=== PATIENT | female | born 1945 | race Caucasian/White ===

== ENCOUNTER 2017-06-30 14:37 | Inpatient (IN) ==
[2017-06-30] MEDS ORDERED: ONDANSETRON 4 MG/2 ML VIAL IV PRN (14:46)
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
[2017-06-30] MEDS ORDERED: ENOXAPARIN 80 MG/0.8 ML SYRINGE SUBCUT ONE (16:32)
[2017-06-30] MEDS ORDERED: NITROGLYCERIN SL 0.4 MG TABLET SL PRN (16:54)
[2017-06-30 17:50] LABS: Basophils % 0.2 % (0.0-0.8); Eosinophils # 0.1 10*3/uL (0.0-0.87); Eosinophils % 1.7 % (0.00-10.9); Hematocrit 37.4 VOL% (35.7-47.0); Hemoglobin 12.4 GM/DL (12.0-16.0); Immature Granulocytes % 0.2 %; Immature Granulocytes Absolute 0.01 #; Lymphocytes % 48.8 % (21.3-54.2); Mean Corpuscular HGB Conc 33.2 GM/DL (32-36); Mean Corpuscular Hemoglobin 32 PG (27-34); Mean Corpuscular Volume 95.7 FL (87-102); Mean Platelet Volume 9.3 FL (9.6-12.0); Monocytes # 0.7 10*3/uL (0.11-0.8); Monocytes % 11.8 % (1.7-12.7); Neutrophils # 2.3 10*3/uL (1.4-7.4); Neutrophils % 37.3 % (38.7-73.9); Platelet Count 353 T/CUMM (130-400); Red Blood Count 3.91 MC/CUMM (3.8-5.5); Red Cell Distribution Width 13.2 % (9.3-17.3)
--- NOTE | 2017-06-30 17:57 | Event Note ---
Chart reviewed and discussed with nurse. Patient is off the floor in radiology. Asked to see patient regarding dysphagia to solids. She also has been having some chest pain and presyncope/syncope episodes. Cardiology is seeing her with plans for possible catheterization tomorrow apparently. I will check back tomorrow morning for consultation.
[2017-06-30] MEDS: SODIUM CHLORIDE 0.9% 1,000 ML IV SCH (18:11)
--- NOTE | 2017-06-30 18:18 | EKG Report ---
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
[2017-06-30] MEDS: PANTOPRAZOLE 40 MG VIAL IV SCH (18:20)
[2017-06-30] MEDS: ISOSORBIDE MONONITRATE 30 MG TABLET PO SCH (18:20)
--- NOTE | 2017-06-30 18:22 | Ultrasound Report ---
Exam:US carotid duplex BI Date:06/30/2017 4:55 PM Indication: Syncope, falling, dizziness Color Doppler, wave form analysis, and grayscale analysis of the cervical carotid arteries was performed. There is moderate partially calcified plaque in either carotid bulb. Waveform analysis shows proper directional flow of the cervical carotid arteries. There is antegrade flow in either vertebral artery. There are no areas of increased peak systolic velocity Impression: There is 16-49% diameter reduction narrowing of either internal carotid artery using indirect NASCET criteria Right Side Flow velocities centimeters per second Common carotid artery:86.0 Proximal ICA:106.8 Distal ICA:80.7 External carotid artery:106.8 Vertebral artery:104.2 ICA/CCA ratio:1.2 Measurements in millimeters Distal ICA: 4.8 mm Left SIde Flow velocities centimeters per second Common carotid artery 87.2 Proximal ICA:92.4 Distal ICA:94.6 External carotid artery:92.0 Vertebral artery:62.5 ICA/CCA ratio:1.1 Measurements in millimeters Distal ICA: 4.8 mm Today studies were performed utilizing indirect NASCET criteria PROCEDURE INTERPRETED AT [facility] DEPARTMENT OF RADIOLOGY Final Report Signed by: Dr. Bailee Figueroa
[2017-06-30] MEDS: ASPIRIN EC 81 MG TABLET PO SCH (18:23)
[2017-06-30 18:34] LABS: Apearance,Urine CLEAR (Clear); Bilirubin,Urine Negative (Negative); Blood, Urine Small mg/dL (Negative); Glucose,Urine (UA) Negative (Negative); Ketones,Urine Negative (Negative); Nitrite,Urine Negative (Negative); Protein,Urine Negative; RBC,Urine <1 /HPF (0-4); Squamous Epithelial Cell,Urine Occasional /HPF (0-10); Urine Color Straw (Yellow); Urine Specific Gravity 1.003 (1.001-1.035); Urine Urobilinogen < 2.0 EU/DL (0.2-1.0)
[2017-06-30 18:36] LABS: Albumin 3.4 G/DL (3.4-5.0); Bilirubin,Total 0.5 MG/DL (0.2-1.0); Magnesium 2.3 MG/DL (1.8-2.4); Osmolality,Calculated 282.3 MOS/KG (273-304); Potassium 4.1 MMOL/L (3.5-5.1); Total Protein 6.7 G/DL (6.4-8.3); Troponin I Only < 0.015 NG/ML (0.00-0.045)
--- NOTE | 2017-06-30 18:57 | XRay Report ---
History: Shortness of breath Date: 06/30/2017 Study: Chest x-ray PA and lateral Comparison exam: No previous The cardiac silhouette is not enlarged. There is no mediastinal mass. The lungs and pleural spaces are generally clear. There are some probable scattered emphysematous changes in the upper lung zones. There is mild thoracic spondylosis and mild osteopenia. Impression: No acute cardiopulmonary process. Chronic lung changes PROCEDURE INTERPRETED AT [facility] DEPARTMENT OF RADIOLOGY Final Report Signed by: Dr. Bailee Figueroa
[2017-06-30 19:14] LABS: Eosinophils 1 % (0-10); Lymphocytes 55 % (20-55); Segmented Neutrophils 43 % (50-85); Total Cells Counted 100
[2017-06-30 19:15] LABS: Burr Cells Few; Platelet Estimate Normal; Poikilocytosis 1+; Tear Drop Cells Few
[2017-06-30 19:44] LABS: Troponin I Only < 0.015 NG/ML (0.00-0.045)
[2017-06-30 20:25] LABS: Free T4 (Free Thyroxine) 0.9 NG/DL (0.76-1.46); Thyroid Stimulating Hormone 1.41 uIU/ml (0.358-3.74)
[2017-06-30] MEDS ORDERED: CARVEDILOL 3.125 MG TABLET PO SCH ×2 (21:00)
[2017-06-30] MEDS: CARVEDILOL 3.125 MG TABLET PO SCH (21:22)
[2017-06-30] MEDS: ATORVASTATIN 40 MG TABLET PO SCH (21:22)
[2017-06-30] MEDS: DOCUSATE SODIUM 100 MG CAPSULE PO SCH (21:22)
[2017-06-30 22:52] LABS: Troponin I Only < 0.015 NG/ML (0.00-0.045)
[2017-07-01] MEDS: ACETAMINOPHEN 325 MG TABLET PO PRN ×2 (04:00→21:12)
[2017-07-01 04:20] LABS: Basophils % 0.2 % (0.0-0.8); Eosinophils # 0.1 10*3/uL (0.0-0.87); Eosinophils % 2.4 % (0.00-10.9); Immature Granulocytes % 0.2 %; Immature Granulocytes Absolute 0.01 #; Lymphocytes # 2.6 10*3/uL (1.4-4.0); Lymphocytes % 48.1 % (21.3-54.2); Mean Corpuscular HGB Conc 32.4 GM/DL (32-36); Mean Corpuscular Hemoglobin 31 PG (27-34); Mean Corpuscular Volume 94.4 FL (87-102); Mean Platelet Volume 9.1 FL (9.6-12.0); Monocytes # 0.6 10*3/uL (0.11-0.8); Neutrophils % 38.1 % (38.7-73.9); Platelet Count 319 T/CUMM (130-400); Red Cell Distribution Width 13.2 % (9.3-17.3); White Blood Count 5.4 T/CUMM (4-12)
[2017-07-01 04:50] LABS: Calcium 8.5 MG/DL (8.5-10.1); Osmolality,Calculated 284.8 MOS/KG (273-304); Potassium 3.9 MMOL/L (3.5-5.1)
[2017-07-01 04:57] LABS: Risk Ratio 2.65; VLDL CHOLESTEROL 27.4 MG/DL
[2017-07-01 05:14] LABS: Eosinophils 1 % (0-10); Giant Platelets Few; Hypochromasia 1+; Lymphocytes 51 % (20-55); Microcytosis Slight; Platelet Estimate Adequate; Segmented Neutrophils 43 % (50-85); Total Cells Counted 100
[2017-07-01] MEDS: SODIUM CHLORIDE 0.9% 1,000 ML IV SCH (05:29)
--- NOTE | 2017-07-01 08:05 | CT Report ---
Exam: CT head without intravenous contrast Clinical History: 72 years Female syncope, dizziness and fall Technique: Axial computed tomography images of the head/brain without intravenous contrast Comparison: No relevant comparisons Findings: Brain: Patchy white matter hypoattenuation predominantly within the proximal lobes suggesting microangiopathic small vessel disease. Choudhury-white matter distinction maintained. No mass effect. No intra or extra-axial hemorrhage. Ventricles: Unremarkable. No ventriculomegaly. Bones/joints: Calvarium is intact Soft tissues: Unremarkable Sinuses: No active paranasal sinus process Mastoid air cells: Unremarkable visualized. Impression: 1. No acute intracranial abnormality PROCEDURE INTERPRETED AT [facility] DEPARTMENT OF RADIOLOGY Final Report Signed by: Moises Choudhury
--- NOTE | 2017-07-01 08:39 | Family Practice Progress Note ---
Family Practice - PN: Subj Interval history: PCP: Dr. 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 History of gastric bypass, pt seen and examined on telemetry floor , is having stress test today, Mentions had one episode of palpitations, heart racing, last night with 2-3 minutes, went away by rest on IVF , NPO, buchanan in place, no fever , has nausea, no vomiting , still feeling weak at bilateral legs Exam (Progress Note) - Constitutional Vitals: Period Temp Pulse Resp BP Sys/Marks Pulse Ox Last 24 Hr 96.8 F-98.6 F 64-99 16-20 114-151/56-91 95-97 Exam: General Examination: GENERAL APPEARANCE: alert and oriented, pleasant, elderly female patient, unsteady gait. HEENT: normal, tympanic membrane bilateral normal. EYES: extraocular movement intact (EOMI), conjunctiva clear, normal . NECK/THYROID: neck supple, full range of motion, no cervical lymphadenopathy, no thyromegaly , no carotid bruit. HEART: , regular rate and rhythm. No murmurs or rubs LUNGS: clear to auscultation bilaterally, no wheezes, rales, rhonchi . ABDOMEN: soft, nontender, nondistended, no organomegaly , bowel sounds present . EXTREMITIES: no edema. NEUROLOGIC: alert and oriented, cranial nerves 2-12 grossly intact, unsteady gait, strength 5/5 BL UE, 4/5 BL LE, . Results - Labs CBC & BMP: 07/01/17 03:52 07/01/17 03:52 Lab Results: I have reviewed the past 24 hour labs - Diagnostic Findings Procedure: Chest x-ray: report reviewed by me, CT: report reviewed by me Assessment and Plan (1) Syncope Status: Acute Assessment and plan: , Frequent falls, rule out cardiac origin, scheduled for stress test today, follow cardiology recommendations 2. Head CT negative, has weakness of bilateral legs, will follow recommendations of neurology 3. GERD, dysphagia, has nausea and vomiting, on Zofran and Protonix,consulted GI 4. Continue IV fluids, will monitor I's and O's. Current Visit: Yes (2) Frequent falls Status: Chronic Current Visit: Yes (3) Chest pain Status: Acute Current Visit: Yes (4) Hypertension, essential Status: Chronic Current Visit: Yes (5) Hyperlipidemia, unspecified Status: Chronic Current Visit: Yes (6) Coronary artery disease Status: Chronic Current Visit: Yes (7) Dysphagia Status: Chronic Current Visit: Yes (8) GERD (gastroesophageal reflux disease) Status: Chronic Current Visit: Yes (9) Oliguria Status: Acute Current Visit: Yes Quality Measures - VTE Contraindication to Pharmacological VTE Prophylaxis: High Risk of Bleeding
--- NOTE | 2017-07-01 08:41 | EKG Report ---
Stationary ECG Study [facility] Test Date: 07/01/2017 8:04:55 AM Pat Name: SHILO VANEGAS Department: Room: 296 Gender: F Pony Trimmer: ALEXIS : 1945 Requested by: Adore Barbosa Order Number: [id number] Reading MD: ANJELICA GROSSMAN Intervals [place] Rate: 59 P: 59 [place]: 170 QRS: -14 QRSD: 94 T: 60 QT: 429 QTc: 429 Interpretive Statements SINUS RHYTHM LOW QRS VOLTAGE IN PRECORDIAL LEADS INTERPRETATION BASED ON A DEFAULT AGE OF 40 YEARS Electronically Signed On 07-01-17 17:08:36 CDT by ANJELICA GROSSMAN [email or web address]
[2017-07-01] MEDS ORDERED: REGADENOSON 0.4 MG/5 ML SYRINGE IV ONE (08:52)
--- NOTE | 2017-07-01 09:37 | Cardiology Progress Note ---
Assessment and Plan (1) Chest pain Status: Acute Assessment and plan: See Plan of Care Listed below. Current Visit: Yes (2) Oliguria Status: Acute Assessment and plan: See Plan of Care Listed below. Current Visit: Yes (3) Coronary artery disease Status: Chronic Assessment and plan: See Plan of Care Listed below. Current Visit: Yes (4) Dysphagia Status: Chronic Assessment and plan: See Plan of Care Listed below. Current Visit: Yes (5) GERD (gastroesophageal reflux disease) Status: Chronic Assessment and plan: See Plan of Care Listed below. Current Visit: Yes (6) Hyperlipidemia, unspecified Status: Chronic Assessment and plan: See Plan of Care Listed below. Current Visit: Yes (7) Hypertension, essential Status: Chronic Assessment and plan: See Plan of Care Listed below. Current Visit: Yes (8) Syncope Status: Acute Assessment and plan: See Plan of Care Listed below. Current Visit: Yes (9) Nausea & vomiting Status: Acute Assessment and plan: See Plan of Care Listed below. Current Visit: Yes (10) Frequent falls Status: Chronic Assessment and plan: See Plan of Care Listed below. Current Visit: Yes (11) Dizziness Status: Chronic Assessment and plan: See Plan of Care Listed below. Current Visit: Yes (12) Heart palpitations Status: Chronic Assessment and plan: See Plan of Care Listed below. Current Visit: Yes (13) History of esophageal stricture Status: Chronic Assessment and plan: See Plan of Care Listed below. Current Visit: Yes (14) Dyspnea on exertion Status: Chronic Assessment and plan: See Plan of Care Listed below. Current Visit: Yes Cardiology - PN: Subj Interval history: MICROBIOLOGY MANAGER: Dr. Strauss PCP: Dr. Barbosa SUMMARY Ms. Deleon is a 72 year old female with known history of coronary artery disease, not routinely followed by local cardiology. Cardiac risk factors include: Hypertension, dyslipidemia, documented CAD, obesity and premature family history of CAD (mother and father both from massive ME prematurely). Past medical history includes: GERD, esophageal stricture requiring dilatation and kidney stones. Patient apparently had intracoronary stents placed at [facility] by Dr. Funez. I have reviewed these records and she underwent angioplasty and stent placement to mid LAD in 2009. At that time, she also had a small first diagonal branch with borderline significant stenosis. Preserved LV systolic function in 2009. Patient was directly admitted from Dr. Barbosa's office 06/30/17 for intermittent complaints of mild, progressive chest discomfort, syncope and heart palpitations. Patient ruled out for myocardial infarction with negative cardiac biomarkers 3. EKG unremarkable. Patient will undergo a Lexiscan stress test today. 2016 Patient seen and examined in nuclear medicine prior to undergoing Lexiscan stress test. She reports that she had intermittent complaints of chest discomfort last night. She did not rest well. She is currently chest pain- free. Cardiac biomarkers have remained negative. She has ruled out for myocardial infarction. EKG unremarkable. Without changes during episodes of chest pain. Lexiscan stress test nondiagnostic. She did have chest tightness after initiation of Lexiscan. Lasted approximately 2 minutes. Associated with shortness of breath. Carotid ultrasound unremarkable. Orthostatic vital signs stable. Head CT stable. cardiac monitor technician reviewed. No evidence of underlying arrhythmia or ectopy. Thyroid function studies normal. D-dimer only mildly elevated at 0.7. Can consider CT PE protocol. Echocardiogram today. These results will be reviewed. Labs reviewed. Hemodynamically stable. Further recommendations to follow after echocardiogram and Lexiscan stress test results have been reviewed. IMPRESSION AND PLAN 1. CHEST PAIN - Ruled out for ME. Underwent Lexiscan stress test today. These results are pending. Echocardiogram also pending. Continue current plan of care with aspirin, beta sav, lipid-lowering agent and nitrates. Can consider addition of FER inhibitor or ARB if blood pressure will tolerate. Further recommendations to follow after echocardiogram and Lexiscan stress test results have been reviewed. 2. HISTORY OF KNOWN CORONARY ARTERY DISEASE - I have reviewed records from [facility]. She received successful angioplasty and stent to mid LAD in 2009. At that time, she also had a small first diagonal branch with borderline significant stenosis. Preserved LV systolic function. Continue current plan of care with aspirin, beta sav, lipid-lowering agent and nitrates. Can consider addition of FER inhibitor or ARB if blood pressure will tolerate. 3. DIZZINESS/SYNCOPE - Orthostatic vital signs and carotid ultrasound unremarkable. No evidence of arrhythmia on cardiac monitor. Consider 30 day event monitor at discharge. Neurology consulted. 4. HEART PALPITATIONS - Normal thyroid studies. Electrolytes within acceptable range. No evidence of overt arrhythmia or ectopy on cardiac monitor. We will continue to observe for this. Continue beta-sav. Consider 30 day event monitor at discharge per 5. DYSPNEA ON EXERTION - Echocardiogram pending. Underwent Lexiscan stress test today. These results are pending. Further recommendations to follow after these results when reviewed. 6. HYPERTENSION -continue beta-blockade. Will monitor blood pressure and adjust accordingly. Can consider initiation of FER inhibitor or ARB if blood pressure will tolerate. 7. HYPERLIPIDEMIA - LDL 69. Continue lipid-lowering agent. 8. GERD - Continue PPI. 9. HISTORY OF ESOPHAGEAL STRICTURE - Patient is complaining of dysphagia. GI has been consulted. 10. NAUSEA VOMITING - GI has been consulted. 11. OLIGURIA - Whitman catheter. Management per attending. Exam (Progress Note) - Constitutional Vitals: Period Temp Pulse Resp BP Sys/Marks Pulse Ox Last 24 Hr 96.8 F-98.6 F 64-99 16-20 114-151/56-91 95-97 Exam: General: Appears well with no apparent distress. Pleasant and cooperative. Appears comfortable. HEENT: PERRL, normocephalic, atraumatic. Mucous membranes moist. No jaundice noted. Conjunctiva moist and clear, sclerae anicteric Neck: No JVD/HJR, no thyromegaly or lymphadenopathy noted. No carotid bruit appreciated Cardiac: Regular rate and rhythm. No murmur rub or gallop. Lungs: Clear to auscultation without accessory muscle use to assist the respiratory pattern. Not requiring oxygen. Abdomen: Soft, bowel sounds normoactive. Nontender and nondistended. No abdominal bruit or thrill noted. No masses noted. Extremities: No clubbing, cyanosis noted. No edema noted. Upper extremity pulses 2+. Lower extremity pulses 2+. Capillary refill less than 3 seconds. Skin: No unusual lesions or rashes. No skin breakdown appreciated. Neuro: Awake, alert and oriented 3. Moves all extremities well without hemiparesis or paralysis. No essential tremor is appreciated. Result/EKG - Labs CBC & BMP: 07/01/17 03:52 07/01/17 03:52 Lab Results: I have reviewed the past 24 hour labs Labs: Laboratory Results - last 24 hr 06/30/17 06/30/17 06/30/17 16:42 16:42 16:42 WBC 6.0 RBC 3.91 Hgb 12.4 Hct 37.4 MCV 95.7 MCH 32 MCHC 33.2 RDW 13.2 Plt Count 353 MPV 9.3 L Neut % (Auto) 37.3 L Lymph % (Auto) 48.8 [place] % (Auto) 11.8 Eos % (Auto) 1.7 Baso % (Auto) 0.2 Neut # (Auto) 2.3 Lymph # (Auto) 3.0 [place] # (Auto) 0.7 Eos # (Auto) 0.1 Baso # (Auto) 0.0 Total Counted 100 Immature Gran % 0.2 Nucleated RBC % 0.0 Immature Gran # 0.01 Segmented Neutrophils 43 L Lymphocytes 55 Monocytes 1 L Eosinophils 1 Nucleated RBCs # 0.00 Platelet Estimate Normal Giant Platelets Immature Plt Fraction 0.0 Hypochromasia Poikilocytosis 1+ Microcytosis Tear Drop Cells Few Marcella Cells Few D-Dimer, Quantitative Sodium 141 Potassium 4.1 Chloride 105 Carbon Dioxide 28 Anion Gap 12.1 BUN 14 Creatinine 1.00 GFR Calculation 64 BUN/Creatinine Ratio 14.00 Glucose 109 H Calculated Osmolality 282.3 Calcium 9.0 Magnesium 2.3 Total Bilirubin 0.50 AST 23 ALT 25 Alkaline Phosphatase 134 H Total Creatine Kinase CK-MB (CK-2) Troponin I B-Natriuretic Peptide 16 Total Protein 6.7 Albumin 3.4 Globulin 3.3 Albumin/Globulin Ratio 1.0 L Triglycerides Cholesterol LDL Cholesterol VLDL Cholesterol HDL Cholesterol Heart Disease Risk Ratio Free T4 TSH 3rd Generation Urine Color Urine Appearance Urine pH Ur Specific [place] Urine Protein Urine Glucose (UA) Urine Ketones Urine Blood Urine Nitrate Urine Bilirubin Urine Urobilinogen Urine Leukocytes Urine RBC Ur Squamous Epith Cells Ur Culture Indicated? 06/30/17 06/30/17 06/30/17 16:42 16:44 18:45 WBC RBC Hgb Hct MCV MCH MCHC RDW Plt Count MPV Neut % (Auto) Lymph % (Auto) [place] % (Auto) Eos % (Auto) Baso % (Auto) Neut # (Auto) Lymph # (Auto) [place] # (Auto) Eos # (Auto) Baso # (Auto) Total Counted Immature Gran % Nucleated RBC % Immature Gran # Segmented Neutrophils Lymphocytes Monocytes Eosinophils Nucleated RBCs # Platelet Estimate Giant Platelets Immature Plt Fraction Hypochromasia Poikilocytosis Microcytosis Tear Drop Cells Nova Cells D-Dimer, Quantitative Sodium Potassium Chloride Carbon Dioxide Anion Gap BUN Creatinine GFR Calculation BUN/Creatinine Ratio Glucose Calculated Osmolality Calcium Magnesium Total Bilirubin AST ALT Alkaline Phosphatase Total Creatine Kinase 66 66 CK-MB (CK-2) 1.4 1.5 Troponin I < 0.015 < 0.015 B-Natriuretic Peptide Total Protein Albumin Globulin Albumin/Globulin Ratio Triglycerides Cholesterol LDL Cholesterol VLDL Cholesterol HDL Cholesterol Heart Disease Risk Ratio Free T4 0.90 TSH 3rd Generation 1.410 Urine Color Urine Appearance Urine pH Ur Specific [place] Urine Protein Urine Glucose (UA) Urine Ketones Urine Blood Urine Nitrate Urine Bilirubin Urine Urobilinogen Urine Leukocytes Urine RBC Ur Squamous Epith Cells Ur Culture Indicated? 06/30/17 06/30/17 06/30/17 18:45 22:00 Unknown WBC RBC Hgb Hct MCV MCH MCHC RDW Plt Count MPV Neut % (Auto) Lymph % (Auto) [place] % (Auto) Eos % (Auto) Baso % (Auto) Neut # (Auto) Lymph # (Auto) [place] # (Auto) Eos # (Auto) Baso # (Auto) Total Counted Immature Gran % Nucleated RBC % Immature Gran # Segmented Neutrophils Lymphocytes Monocytes Eosinophils Nucleated RBCs # Platelet Estimate Giant Platelets Immature Plt Fraction Hypochromasia Poikilocytosis Microcytosis Tear Drop Cells Nova Cells D-Dimer, Quantitative 0.7 Sodium Potassium Chloride Carbon Dioxide Anion Gap BUN Creatinine GFR Calculation BUN/Creatinine Ratio Glucose Calculated Osmolality Calcium Magnesium Total Bilirubin AST ALT Alkaline Phosphatase Total Creatine Kinase 56 CK-MB (CK-2) 1.4 Troponin I < 0.015 B-Natriuretic Peptide Total Protein Albumin Globulin Albumin/Globulin Ratio Triglycerides Cholesterol LDL Cholesterol VLDL Cholesterol HDL Cholesterol Heart Disease Risk Ratio Free T4 TSH 3rd Generation Urine Color Straw Urine Appearance Clear Urine pH 7.0 Ur Specific [place] 1.003 Urine Protein Negative Urine Glucose (UA) Negative Urine Ketones Negative Urine Blood Small Urine Nitrate Negative Urine Bilirubin Negative Urine Urobilinogen < 2.0 H Urine Leukocytes Negative Urine RBC <1 Ur Squamous Epith Cells Occasional Ur Culture Indicated? Ordered separately 07/01/17 07/01/17 07/01/17 03:52 03:52 03:52 WBC 5.4 RBC 3.60 L Hgb 11.0 L Hct 34.0 L MCV 94.4 MCH 31 MCHC 32.4 RDW 13.2 Plt Count 319 MPV 9.1 L Neut % (Auto) 38.1 L Lymph % (Auto) 48.1 [place] % (Auto) 11.0 Eos % (Auto) 2.4 Baso % (Auto) 0.2 Neut # (Auto) 2.0 Lymph # (Auto) 2.6 [place] # (Auto) 0.6 Eos # (Auto) 0.1 Baso # (Auto) 0.0 Total Counted 100 Immature Gran % 0.2 Nucleated RBC % 0.0 Immature Gran # 0.01 Segmented Neutrophils 43 L Lymphocytes 51 Monocytes 5 Eosinophils 1 Nucleated RBCs # 0.00 Platelet Estimate Adequate Giant Platelets Few Immature Plt Fraction 0.0 Hypochromasia 1+ Poikilocytosis Microcytosis Slight Tear Drop Cells Nova Cells D-Dimer, Quantitative Sodium 144 Potassium 3.9 Chloride 111 H Carbon Dioxide 28 Anion Gap 8.9 BUN 12 Creatinine 0.90 GFR Calculation 73 BUN/Creatinine Ratio 13.00 Glucose 89 Calculated Osmolality 284.8 Calcium 8.5 Magnesium Total Bilirubin AST ALT Alkaline Phosphatase Total Creatine Kinase CK-MB (CK-2) Troponin I B-Natriuretic Peptide Total Protein Albumin Globulin Albumin/Globulin Ratio Triglycerides 137 Cholesterol 130 LDL Cholesterol 69.0 VLDL Cholesterol 27.4 HDL Cholesterol 49 Heart Disease Risk Ratio 2.65 Free T4 TSH 3rd Generation Urine Color Urine Appearance Urine pH Ur Specific [place] Urine Protein Urine Glucose (UA) Urine Ketones Urine Blood Urine Nitrate Urine Bilirubin Urine Urobilinogen Urine Leukocytes Urine RBC Ur Squamous Epith Cells Ur Culture Indicated? Quality Measures - VTE Contraindication to Pharmacological VTE Prophylaxis: High Risk of Bleeding
--- NOTE | 2017-07-01 09:40 | Event Note ---
Patient underwent Lexiscan stress test today. Lexiscan protocol used as patient cannot walk long distances. Stress test nondiagnostic. She did have complaints of midsternal chest tightness after initiation of Lexiscan. Associated with shortness of breath. Lasted 2 minutes. No associated nausea, vomiting or diaphoresis. No ectopy. Patient now on to final nuclear scan. Dr. Moreno to read, interpret and advise.
[2017-07-01] MEDS: PANTOPRAZOLE 40 MG VIAL IV SCH (10:52)
[2017-07-01] MEDS: ASPIRIN EC 81 MG TABLET PO SCH (10:54)
[2017-07-01] MEDS: DOCUSATE SODIUM 100 MG CAPSULE PO SCH ×2 (10:55→21:07)
[2017-07-01] MEDS: ISOSORBIDE MONONITRATE 30 MG TABLET PO SCH (10:55)
[2017-07-01] MEDS: CARVEDILOL 3.125 MG TABLET PO SCH (10:55)
[2017-07-01] MEDS: ENOXAPARIN 40 MG/0.4 ML SYRINGE SUBCUT SCH (10:57)
--- NOTE | 2017-07-01 11:45 | ECHO Report ---
Jolene Deleon Exam Date: 07/01/2017 09:30 Referring Physician: Technologist: Age: 72 Ht (in): Wt (lb): Gender: F Exam Location: [facility] Echo Indications: BP: / HR: Rhythm: Sinus Technical Quality: IMPRESSIONS Normal left ventricular size, with mild concentric hypertrophy, with sigmoid septum, with normal systolic function. Estimated left ventricle ejection fraction 65%. Grade 1 diastolic dysfunction. Mild left atrial enlargement. Borderline pulmonary hypertension. Mild pulmonic valve insufficiency. MEASUREMENTS (Male / Female) Normal Values 2D ECHO LV Diastolic Diameter PLAX 3.8 cm 4.2 - 5.9 / 3.9 - 5.3 cm LV Systolic Diameter PLAX 1.6 cm LV Fractional Shortening PLAX 56.8 % IVS Diastolic Thickness 1.0 cm 0.6 - 1.0 / 0.6 - 0.9 cm LVPW Diastolic Thickness 1.0 cm 0.6 - 1.0 / 0.6 - 0.9 cm RV Internal Dim ED PLAX 3.1 cm Aortic Root Diameter 3.1 cm LA Systolic Diameter LX 3.0 cm 3.0 - 4.0 / 2.7 - 3.8 cm DOPPLER TR Peak Velocity 270.0 cm/s TR Peak Gradient 29.2 mmHg FINDINGS Left Ventricle Normal left ventricular size, with mild concentric hypertrophy, with sigmoid septum, with normal systolic function. Estimated left ventricle ejection fraction 65%. Grade 1 diastolic dysfunction. Right Ventricle The right ventricle is normal in size, with normal systolic function. Right Atrium The right atrium is normal in size. Left Atrium The left atrium is mildly dilated. Mitral Valve Structurally normal mitral valve, with trace insufficiency, without stenosis. Aortic Valve Mildly thickened aortic valve, without stenosis or insufficiency. Tricuspid Valve Structurally normal tricuspid valve, with trace to mild regurgitation. Estimated pulmonary artery systolic pressure 29 mm plus RA pressure. Pulmonic Valve Structurally normal pulmonic valve, with mild insufficiency, without stenosis. Pericardium Normal pericardium, no effusion. Aorta The aortic root is normal in size. Romain Moreno (Electronically Signed) Final Date: 01 July 2017 11:44
--- NOTE | 2017-07-01 11:51 | Gastrointestinal Consult Note ---
Assessment and Plan (1) Dysphagia Status: Chronic Assessment and plan: 07/01-complaints of dysphagia with history of esophageal stricture dilation in the past, most recent 6 months ago. Difficulty swallowing solids and pills and at times liquids. No reported weight loss. Cardiology workup is in progress at this time. Continue to follow until she is cleared cardiac [place] and then consider EGD for esophageal dilation. Plan an addendum to followed by Dr. Figueroa Current Visit: Yes History of Present Illness Chief complaint: Dysphagia History of present illness: Ms. Deleon is a 72 year old female who was admitted to the hospital on yesterday with complaints of syncope. Patient has a prior history of hypertension, CAD, esophageal stricture, and stent placement. Patient was admitted from Dr. Gilmore's office where she presented with complaints of chest discomfort, syncope and heart palpitations. She states that these began approximately 2 weeks ago and worsened over the last several days. Patient has been seen by cardiology and underwent Lexiscan stress test this morning with results pending at present time. Patient brought forth that she has had difficulty with swallowing in the past and has never required several esophageal dilations which were done at an out lying facility. Patient states that her last EGD was a probably 6 months ago with dilation and states that this did improve her dysphagia however over the last several weeks this is began to worsen again. Patient states that she does have difficulty swallowing with solids and pills and at times has to regurgitate them. She states that she has noticed today that at times liquids will cause her to choke. She denies any weight loss associated with this. Denies any odontophagia. She denies any melena or hematochezia. She does have GERD and takes Protonix with this daily. She also reports some episodes of nausea and vomiting but denies any coffee-ground emesis or hematemesis. She states that these episodes at times are related to her inability to swallow and having to bring the food back up. Home Medications Medication Instructions Recorded Confirmed Type Aspirin EC Tab 81 mg PO BEDTIME 06/30/17 06/30/17 History Atorvastatin [Lipitor] 20 mg PO BEDTIME 06/30/17 06/30/17 History Furosemide Tab [Lasix Tab] 10 mg PO BEDTIME 06/30/17 06/30/17 History Mirabegron [Myrbetriq] 50 mg PO BEDTIME 06/30/17 06/30/17 History Pantoprazole Tab [Protonix Tab] 40 mg PO BEDTIME 06/30/17 06/30/17 History Ranolazine [Ranexa] 500 mg PO BEDTIME 06/30/17 06/30/17 History traZODone [Desyrel] 25 mg PO BEDTIME 06/30/17 06/30/17 History Allergies Allergy/AdvReac Type Severity Reaction Status Date / Time No Known Allergies Allergy Verified 06/30/17 16:12 Medical,Surgical,& Family Hx - Medical History Cardio: History of: CAD, Hypertension, Cardiovascular Problems (Coronary artery disease status post stents, 2011? ) Neurology: History of: Neurological Problems (dizziness/presyncopes) Endocrine: History of: Dyslipidemia Genitourinary: History of: Bladder Problem (Stress incontinence), Kidney Stones Gastrointestinal: History of: Bowel Obstruction, GERD (History of gastric bypass , weight loss surgery and correction 2), GI Problems (Esophageal stricture) - Surgical History Cardiac Surgeries: Sugical HX of: Cardiac Catheterization Abdominal Surgeries: Surgical HX of: Abdominal Surgery, Gastric Bypass Surgery, EGD Reproductive Surgeries: Surgical HX of;: Breast Surgery - Family History Family History: Reports;: Family Heart Disease (Family history of premature CAD (mother and father)), Family Hypertension - Social History Smoking Status: Never smoker Frequency of Alcohol Use: None Type of Drug Use: None 12 point system: reviewed and no additional remarkable complaints except as stated - Constitutional Constitutional: Present: as per HPI - EENT Eyes: Present: as per HPI Ears: Present: as per HPI Nose, mouth and throat: Present: as per HPI - Cardiovascular Cardiovascular: Present: as per HPI, dyspnea - Respiratory Respiratory: Present: as per HPI - Gastrointestinal Gastrointestinal: Present: as per HPI, dysphagia, nausea, vomiting - Genitourinary Genitourinary: Present: as per HPI - Musculoskeletal Musculoskeletal: Present: as per HPI - Neurological Neurological: Present: as per HPI - Psychiatric Psychiatric: Present: as per HPI - Endocrine Endocrine: Present: as per HPI - Hematologic/Lymphatic Hematologic/Lymphatic: Present: as per HPI Exam - Constitutional Vitals: Period Temp Pulse Resp BP Sys/Marks Pulse Ox Last 24 Hr 96.5 F-98.6 F 64-99 15-20 114-151/56-91 95-97 General appearance: normal weight, no acute distress - Head Head exam: Present: normal inspection, normocephalic - Eye Eye exam: Present: other (Lids and conjunctivae are unremarkable). Absent: scleral icterus - ENT ENT exam: Present: normal exam, normal oropharynx - Neck Neck exam: Present: normal inspection - Respiratory Respiratory exam: Present: clear to auscultation bilaterally. Absent: rales, rhonchi, wheezes - Cardiovascular Cardiovascular exam: Present: regular rate and rhythm. Absent: diastolic murmur , JVD, systolic murmur - GI/Abdominal GI/Abdominal exam: Present: normal bowel sounds, soft. Absent: ascites, distended, mass, organomegaly, tenderness - Extremities Exam Extremities exam: Present: normal inspection, full ROM - Back Exam Back exam: Present: normal inspection - Neurological Exam Neurological exam: Present: alert, oriented X3 - Psychiatric Psychiatric exam: Present: normal affect, normal mood - Skin Skin exam: Present: normal color, warm, dry Results - Labs CBC & BMP: 07/01/17 03:52 07/01/17 03:52 Lab Results: I have reviewed the past 24 hour labs Quality Measures - VTE Contraindication to Pharmacological VTE Prophylaxis: High Risk of Bleeding
[2017-07-01] MEDS ORDERED: CARVEDILOL 6.25 MG TABLET PO SCH (12:19)
--- NOTE | 2017-07-01 13:23 | Nuclear Medicine Report ---
PHARMACOLOGICAL STRESS TEST Report interpreted and dictated by Dr. Romain Moreno. INDICATION: Chest pain. PROCEDURE: At rest, 10 mCi of 99-Technetium labeled Sestamibi was injected and rest images were obta ined. The patient was unable to exercise in the treadmill. A 0.4 mg IV Lexiscan was injected. Post Lexiscan injection, 30 mCi of 99-Technetium labeled Sestamibi was injected and post stress images we re obtained. FINDINGS: At rest, sinus rhythm, 70 beats per minute, blood pressure 128/73 mmHg, normal repolarizat ion. Post Lexiscan injection, the patient experienced chest pain for 2 minutes, which then resolved. Sinus rhythm 91 beats per minute. No ST-T changes, blood pressure 152/70 mmHg. No significant arr hythmia noted Rest and post pharmacological stress gated and perfusion images were reviewed. The le ft ventricle is normal in size, the end-diastolic volume is 60 cc, the end-systolic volume is 10 cc. The calculated left ventricular ejection fraction is 80%. Perfusion images show an area of mildly d ecreased activity in the mid inferoseptal area, at rest, which becomes normal post stress. This is s uggestive of imaging artifacts. CONCLUSION: 1. CLINICALLY POSITIVE, ELECTRICALLY NEGATIVE PHARMACOLOGICAL STRESS TEST WITH LEXISCAN INJECTION. 2. NORMAL LEFT VENTRICULAR/NORMAL SYSTOLIC FUNCTION, NO EVIDENCE OF OLD MYOCARDIAL DISEASE OR ISCHEM IA. 3. THIS IS A LOW RISK TEST. Procedure performed and interpreted at [facility] Department of Radiology.
--- NOTE | 2017-07-01 14:48 | Event Note ---
This is an addendum to the GI consult note dictated by Allyssa Cho CNP. I am unable to edit her note due to a glitch in the [employer] system. 72-year -old female admitted with recent chest pain and shortness of breath is being evaluated for possible cardiac cause for this. She has history of GERD and recurrent esophageal stricture formation with this previously followed by a cutting torch operator in [facility]. Patient was last dilated around 6 months ago she says. She has been noting increased dysphagia to solids recently. Heartburn symptoms are well controlled on daily PPI therapy. Her weight is stable. She will need repeat EGD with probable esophageal dilation but this should be delayed until her cardiac issues are clarified. If patient is discharged over the weekend we can set this up as an outpatient when cardiology feels she is stable for that. Dr. Sanz is solution lead for GI this weekend if needed.
[2017-07-01] MEDS: ATORVASTATIN 40 MG TABLET PO SCH (21:07)
[2017-07-01] MEDS: CARVEDILOL 12.5 MG TABLET PO SCH (21:07)
[2017-07-02] MEDS ORDERED: NAPROXEN EC 375 MG TABLET PO PRN (08:33)
--- NOTE | 2017-07-02 08:33 | Family Practice Progress Note ---
Family Practice - PN: Subj Interval history: Patient seen this morning. She is stable is alert and oriented talks with this easily. Arouses easily. No acute distress. Does state that she has had headaches through the night to give her Tylenol with no relief. States that Aleve helps her more than anything. Will give her low-dose Aleve twice a day. Hopefully this will not cause any GI issues but she states that it never has. Otherwise she is doing well. Waiting on all full cardiology evaluation Exam (Progress Note) - Constitutional Vitals: Period Temp Pulse Resp BP Sys/Marks Pulse Ox Last 24 Hr 96.3 F-100.5 F 70-90 15-18 119-155/55-76 94-99 Exam: Generally alert and oriented no acute distress HEENT pupils equal reactive light neck is supple trachea midline Vascular rate regular no gallop or rub 1 out of 6 systolic ejection murmur Lungs clear Abdomen soft nondistended Results - Labs CBC & BMP: 07/01/17 03:52 07/01/17 03:52 Quality Measures - VTE Contraindication to Pharmacological VTE Prophylaxis: High Risk of Bleeding Specialty Discharge - Follow Up or Referrals Follow up with: Marylu Strauss MD [Physician] - 1 Month (with ekg )
[2017-07-02] MEDS: ASPIRIN EC 81 MG TABLET PO SCH (09:23)
[2017-07-02] MEDS: DOCUSATE SODIUM 100 MG CAPSULE PO SCH ×2 (09:23→20:27)
[2017-07-02] MEDS: CARVEDILOL 12.5 MG TABLET PO SCH ×2 (09:23→20:27)
[2017-07-02] MEDS: ISOSORBIDE MONONITRATE 30 MG TABLET PO SCH (09:23)
[2017-07-02] MEDS: PANTOPRAZOLE 40 MG VIAL IV SCH (09:24)
[2017-07-02] MEDS: NAPROXEN 250 MG TABLET PO PRN ×2 (10:02→18:11)
[2017-07-02] MEDS: ENOXAPARIN 40 MG/0.4 ML SYRINGE SUBCUT SCH (10:17)
[2017-07-02] MEDS: ATORVASTATIN 40 MG TABLET PO SCH (20:27)
[2017-07-02] MEDS: ACETAMINOPHEN 325 MG TABLET PO PRN (20:27)
[2017-07-03] MEDS: PANTOPRAZOLE 40 MG VIAL IV SCH (09:11)
[2017-07-03] MEDS: ISOSORBIDE MONONITRATE 30 MG TABLET PO SCH (09:12)
[2017-07-03] MEDS: DOCUSATE SODIUM 100 MG CAPSULE PO SCH (09:12)
[2017-07-03] MEDS: ASPIRIN EC 81 MG TABLET PO SCH (09:12)
[2017-07-03] MEDS: ENOXAPARIN 40 MG/0.4 ML SYRINGE SUBCUT SCH (09:12)
[2017-07-03] MEDS: CARVEDILOL 12.5 MG TABLET PO SCH (09:12)
--- NOTE | 2017-07-03 10:36 | Family Practice Progress Note ---
Family Practice - PN: Subj Interval history: Patient seen this morning. She is stable is alert and oriented talks with this easily. Arouses easily. No acute distress. Does state that she has had headaches through the night to give her Tylenol with no relief. States that Aleve helps her more than anything. Will give her low-dose Aleve twice a day. Hopefully this will not cause any GI issues but she states that it never has. Otherwise she is doing well. Waiting on all full cardiology evaluation. 07/03/2017 patient stable doing well. I am going to discuss with her whether she would like to go home today. It was noted that her chest showed no specific disease. She does need a repeat EGD and will possibly to schedule this for a future date. We will give her a 30 day event monitor which we will discharge her with, if she goes Exam (Progress Note) - Constitutional Vitals: Period Temp Pulse Resp BP Sys/Marks Pulse Ox Last 24 Hr 97.4 F-98.6 F 58-71 16-20 118-157/57-77 94-97 Results - Labs CBC & BMP: 07/01/17 03:52 07/01/17 03:52 Quality Measures - VTE Contraindication to Pharmacological VTE Prophylaxis: High Risk of Bleeding Specialty Discharge - Follow Up or Referrals Follow up with: Marylu Strauss MD [Physician] - 1 Month (with ekg )
--- NOTE | 2017-07-03 11:17 | Discharge Summary ---
Hospital Course - Hospital Course Hospital Course: Patient, a 72-year-old female came from [place] to the medical clinic with multiple complaints. These included chronic dizziness getting worse, left- sided chest pain with shortness of breath, feeling fatigued, questionable blackout 06/25/2017, imbalance, fever and chills, dysphagia particularly with solid foods,. She does have a history of frequent falls, urinary hesitancy, gastric bypass in 1981 (redone in 2010), gastroesophageal reflux, cardiac palpitations, insomnia. Was seen in the hospital because of her complaints and had both a cardiac and GI evaluation. She was felt to be stable from a cardiac standpoint (please see records in the hospital) and also has been able to eat without difficulty in the hospital. It was felt that she needed a 30 day event monitor on discharge which we will get scheduled for her and also would need a GI follow-up for repeat EGD once she was stable from cardiac standpoint. 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 Santiago, Dr. Figueroa, and Dr. barbosa (primary physician). Again, she is feeling very well and ready to go home without any acute distress. She is coherent and alert and all of these instructions were given to her. Specialty Discharge - Follow Up or Referrals Follow up with: Marylu Strauss MD [Physician] - 1 Month (with ekg ) Discharge Plan - Discharge Data Disposition: Disch To Home/Self Care Condition at Discharge: Stable Discharge Diet: other (soft diet) Activity: resume usual activities as tolerated Hygiene: no restrictions Weight Bearing at Discharge: weight bear as tolerated Driving: no restrictions Contact your physician if you experience:: Nausea/Vomiting - Discharge Medications New Carvedilol [Coreg] 12.5 mg PO BID #60 tablet Isosorbide Mononitrate [Imdur] 30 mg PO DAILY #30 tablet Continue Pantoprazole Tab [Protonix Tab] 40 mg PO BEDTIME Atorvastatin [Lipitor] 20 mg PO BEDTIME traZODone [Desyrel] 25 mg PO BEDTIME Ranolazine [Ranexa] 500 mg PO BEDTIME Mirabegron [Myrbetriq] 50 mg PO BEDTIME Aspirin EC Tab 81 mg PO BEDTIME Changed Furosemide Tab [Lasix Tab] 10 mg PO DAILY #1 capsule - Follow Up or Referral Follow Up: Adore Barbosa MD [Physician] - 1 Week (TCM ) Marylu Strauss MD [Physician] - 1 Month (with ekg ) Donnie Figueroa MD [Physician] - (call office to sched. VALDEZ tomorrow) - Forms/Instructions Additional Discharge Instructions: Patient is to have a 30 day event monitor on discharge Exam - Constitutional Vitals: Period Temp Pulse Resp BP Sys/Marks Pulse Ox Last 24 Hr 97.4 F-98.6 F 58-71 16-20 118-157/57-77 94-97 Discharge Results Procedures and tests throughout hospitalization: Pending Orders 06/30/17 16:42 Blood Culture Stat Labs on day of discharge: Preliminary micro results at discharge 06/30/17 16:42 Blood Culture - Preliminary Blood No growth at 1 day 06/30/17 16:42 Blood Culture - Preliminary Blood No growth at 1 day DS: Provider Date of admission: 06/30/17 14:56 Primary care physician: . No PCP Attending physician on admission: Adore Barbosa MD Consults: 06/30/17 14:46 Consult to Case Mgmt/Social Srvs [CONS] Routine Reason for Case Mgmt/Social Srvs: Discharge Planning 06/30/17 14:56 Consult to Physician [CONS] Routine Comment: Consulting Provider: Presley Dodson When should Consulting Provider be notified: Now 06/30/17 15:17 Consult to Physician [CONS] Routine Comment: Consulting Provider: Donnie Figueroa When should Consulting Provider be notified: Now 06/30/17 15:53 Consult to Physician [CONS] Routine Comment: Consulting Provider: Romain Moreno When should Consulting Provider be notified: Now Discharging clinician: Paco Delong DO
[2017-07-03 14:17] VITALS: BP 110/55
== END 2017-07-03 14:55 | disposition home or self-care (01) | DRG 303 ==
LOC: N.TELEN 14:56
PROVIDERS: ADMIT Family Medicine; ATTEND Family Medicine